=== PATIENT | female | born 1940 | race Caucasian/White ===

== ENCOUNTER 2022-02-28 15:07 | Emergency (ER) | payer MEDICARE, SELFPAY ==
[2022-02-28 15:25] VITALS: BP 129/74; PULSE 102; RESP 20; TEMP 37.8; O2SAT 96; BMI 21.9
--- NOTE | 2022-02-28 15:47 | ED_ITS ---
HPI - General Adult General Date Seen: 02/28/22 Chief complaint: Weakness Stated complaint: Cov+ as of today Time Seen by Provider: 02/28/22 15:14 Source: patient Mode of arrival: ambulatory Limitations: no limitations History of Present Illness HPI narrative: 81-year-old female presents for evaluation and treatment of COVID infection. She reports that she had a possible exposure to COVID 5 days ago at a . She had no symptoms until yesterday when she started having sore throat and a little bit of cough. She also feels fatigue and malaise. She had a COVID test at home yesterday which was negative and a positive test today. She is not having any shortness of breath, chest pain or abdominal pain. She does report a decrease in her appetite. She reports she is otherwise generally healthy. She has hyperlipidemia treated with atorvastatin. No other prescription medications. She has had 4 previous COVID vaccines. Related Data Home Medications Medication Instructions Recorded Confirmed atorvastatin 10 mg tablet 10 mg PO HS 02/28/22 02/28/22 Previous Rx's Medication Instructions Recorded nirmatrelvir 150 mg-ritonavir 100 See Rx Instructions PO .COMPLEX 02/28/22 mg tablet (EUA) (Paxlovid) #20 tabs Allergies Allergy/AdvReac Type Severity Reaction Status Date / Time bee venom protein (honey bee) Allergy Verified 02/28/22 15:29 Review of Systems Narrative: She was feeling well prior to yesterday. [facility] Medical History Hyperlipidemia Osteopenia Surgical History History of cataract surgery History of hysterectomy History of total right hip arthroplasty Social History Smoking Status: Former smoker Do you use any of these nicotine containing products: None Second hand tobacco smoke exposure: No How often do you have a drink containing alcohol: 2-4 times a month How many standard drinks containing alcohol do you have on a typical day: 1 or 2 How often do you have six or more drinks on one occasion: Never AUDIT-C Alcohol total score: 2 Non-prescribed substance use: denies use Exam Narrative: Exam Narrative: She is alert and appears in no distress. Speech is normal. She is oriented to her circumstances. Eyes normal. Oropharynx with mild erythema. Neck is supple without mass or adenopathy. Respirations are clear to auscultation without wheezing, rales, rhonchi. Breathing is unlabored. Cardiovascular: S1, S2, regular rate and rhythm. No murmur gallop or rub. Abdomen: Bowel sounds active. Abdomen is soft without tenderness or mass. Extremities without edema. She has good peripheral pulses. Const: Vital Signs, click to edit/add: Vital Signs - 24 hr 02/28/22 15:25 Temperature 100.0 F H Pulse Rate [Left P ulse Oximeter] 102 H Respiratory Rate 20 Blood Pressure [Ri ght Upper Arm] 129/74 Pulse Oximetry 96 Oxygen Delivery Me thod Room Air Documenting provider has reviewed patient's vital signs: yes Course Vital Signs Vital signs: Initial Vital Signs Temperature 100.0 F H 02/28/22 15:25 Temperature Source Temporal Artery Scan 02/28/22 15:25 Pulse Rate 102 H 02/28/22 15:25 Pulse Rhythm 02/28/22 15:25 Pulse Strength 3+ Normal 02/28/22 15:25 Respiratory Rate 20 02/28/22 15:25 Blood Pressure 129/74 02/28/22 15:25 Blood Pressure Mean 92 02/28/22 15:25 Blood Pressure Position Supine 02/28/22 15:25 Pulse Oximetry 96 02/28/22 15:25 Oxygen Delivery Method 02/28/22 15:25 Vital Signs Temperature 100.0 F H 02/28/22 15:25 Pulse Rate 102 H 02/28/22 15:25 Respiratory Rate 20 02/28/22 15:25 Blood Pressure 129/74 02/28/22 15:25 Pulse Oximetry 96 02/28/22 15:25 Oxygen Delivery Method 02/28/22 15:25 Temperature 100.0 F H 02/28/22 15:25 Pulse Rate 102 H 02/28/22 15:25 Respiratory Rate 20 02/28/22 15:25 Blood Pressure 129/74 02/28/22 15:25 Pulse Oximetry 96 02/28/22 15:25 Oxygen Delivery Method 02/28/22 15:25 Medical Decision Making Lab Data Labs: Lab Results 02/28/22 Range/Units 15:53 POC Creatinine 0.9 (0.6-1.3) mg/dl Discharge Plan Discharge Clinical Impression: COVID-19 virus infection Patient Disposition: Home, Self-Care Additional Instructions: Take Paxlovid as prescribed. While taking Paxlovid do not take atorvastatin. Isolate yourself to minimize risk of spreading COVID. Return to the emergency department if you have trouble breathing or are becoming very ill. Prescriptions: New Paxlovid (EUA) 150-100 mg tablet See Rx Instructions .ROUTE .COMPLEX Qty: 20 0RF Rx Instructions: orally per package directions No Action atorvastatin 10 mg tablet 10 mg PO HS Label Comments: TAKE 1 TABLET BY MOUTH AT BEDTIME Follow Up/Referrals: Alice Garcia MD [Primary Care Provider] - Stand Alone Forms: [employer] Info Instructions
[2022-02-28 16:14] LABS: Creatinine, Point-of-Care* 0.9 mg/dl (0.6-1.3)
== END 2022-02-28 16:48 | disposition home or self-care (01) ==
LOC: ED 16:22
PROVIDERS: Emergency Provider Family Medicine; PCP Internal Medicine
DX: U07.1 COVID-19 (principal)
CPT/HCPCS: 82565; 99282; 99283; 99284

== ENCOUNTER 2023-02-21 07:48 | Outpatient (CLI) | payer MEDICARE, SELFPAY | END 2023-02-21 07:49 | disposition home or self-care (01) | LOC: NFLDREF 02-22 08:34 | PROVIDERS: PCP Internal Medicine; Referring Provider Internal Medicine; Visit Provider Internal Medicine | DX: Z00.00 Encounter for general adult medical examination without abnormal findings (principal); E78.5 Hyperlipidemia, unspecified; M85.80 Other specified disorders of bone density and structure, unspecified site; Z13.21 Encounter for screening for nutritional disorder | CPT/HCPCS: 80061; 82306 ==